=== PATIENT | male | born 1940 | race Two or more races ===

== ENCOUNTER → 2020-06-10 | Outpatient (CLI) | payer MEDICARE ==
[~2020-06-10] MED LIST: IOPAMIDOL 370 MG/ML 200 ML INFUS..BTL INJ ONE; SODIUM CHLORIDE 0.9% 500ML 500 ML ONE; SODIUM CHLORIDE 0.9% 50ML 50 ML ONE
[2020-06-10 15:20] LABS: CREATININE, SERUM 1.52 mg/dL (0.72-1.25)
--- NOTE | 2020-06-10 16:41 | Diagnostic Imaging Report ---
EXAM: CT Pelvis WITH intravenous contrast INDICATION: Elevated PSA COMPARISON: None. TECHNIQUE: Pelvis were scanned utilizing a multidetector helical scanner from the iliac crest to the pubic symphysis following administration of IV contrast. Coronal and sagittal reformations were obtained. Routine protocol was performed. IV CONTRAST: 100cc Isovue 370. ORAL CONTRAST: None RADIATION DOSE: Total DLP: 340 mGy*cm COMPLICATIONS: None FINDINGS: LINES and TUBES: None. GI TRACT: No abnormal bowel thickening. No bowel obstruction. Normal appendix. PELVIC ORGANS/BLADDER: Punctate calcification within the prostate. The prostate measures 4.5 x 3.6 x 4.0 cm with volume estimate of 34cc. LYMPH NODES: No lymphadenopathy. VESSELS: Mild atherosclerotic calcifications. PERITONEUM / RETROPERITONEUM: No free air or fluid. BONES: No acute osseous injury. No suspicious lytic or blastic lesions. Minimal anterolisthesis at L5-S1. SOFT TISSUES: Unremarkable. IMPRESSION: Mild prostatomegaly. Signed by: Debi Vicente MD on 06/10/2020 4:38 PM
--- NOTE | 2020-06-10 19:44 | Diagnostic Imaging Report ---
Bone Scan, delayed phase INDICATION: Elevated PSA COMPARISON: CT pelvis 06/10/2020 REPORT: Approximately 3 hours following intravenous administration of 25 mCi of Tc-99m MDP, delayed total body images in the anterior and posterior projections and selected spot images were obtained. Degenerative changes noted in the lower lumbar spine as well as in the bilateral sternoclavicular joints and the knees. Otherwise, distribution of tracer activity is unremarkable throughout the skeletal system. No abnormal accumulation of tracer is seen in the soft tissues or urinary tract. IMPRESSION: No scan evidence of metastatic or metabolic bone disease. Signed by: Dr. Gena Lopez M.D. on 06/10/2020 7:41 PM
== END ==
LOC: NM 13:42
PROVIDERS: ATTEND Urology
DX: R97.20 Elevated prostate specific antigen [PSA] (principal); N40.0 Benign prostatic hyperplasia without lower urinary tract symptoms
CPT/HCPCS: 36415; 72193; 78306; 82565; 84520; 96360; A9503; J7040; Q9967; A9570